=== PATIENT | female | born 1955 | race Caucasian/White ===

== ENCOUNTER → 2017-12-12 | Outpatient (CLI) | payer OTHER, MEDICARE ==
--- NOTE | 2017-12-13 10:38 | MM ---
Reason for exam: screening (asymptomatic). Last mammogram was performed 1 year and 1 month ago. History: Patient is postmenopausal and history of other cancer. Family history of breast cancer in paternal grandmother at age 60. Physical Findings: A clinical breast exam by your physician is recommended on an annual basis and results should be correlated with mammographic findings. MG 3D Screening Mammo W/Cad Bilateral CC and MLO view(s) were taken. Prior study comparison: October 30, 2016, bilateral MG 3d screening mammo w/cad. October 24, 2015, bilateral MG screening mammo w CAD. The breast tissue is heterogeneously dense. This may lower the sensitivity of mammography. No significant changes when compared with prior studies. ASSESSMENT: Benign, BI-RAD 2 RECOMMENDATION: Routine screening mammogram of both breasts in 1 year.
== END | disposition home or self-care (01) ==
LOC: RADMAMWWP 13:42
PROVIDERS: ATTEND Internal Medicine
DX: Z12.31 Encounter for screening mammogram for malignant neoplasm of breast (principal)
CPT/HCPCS: 77063; 77067

== ENCOUNTER 2019-07-09 13:56 | Day surgery (SDC) | payer MEDICARE, BC ==
[2019-07-01 14:49] VITALS: BMI 27.6
[~2019-07-09 13:56] MED LIST: LACTATED RINGERS 1,000 ML IV SCH; SODIUM CHLORIDE 0.9% 1,000 ML IV SCH
[2019-07-09] MEDS ORDERED: MIDAZOLAM 2 MG/2 ML VIAL ONE (16:20)
[2019-07-09] MEDS ORDERED: SUCCINYLCHOLINE CHLORIDE 100 MG/5 ML SYR IV ONE (16:20)
[2019-07-09] MEDS ORDERED: PROPOFOL 10 MG/ML 20 ML VIAL IV ONE (16:20)
[2019-07-09] MEDS ORDERED: PROTAMINE SULFATE 10 MG/ML 5 ML VIAL IV ONE (16:20)
[2019-07-09] MEDS ORDERED: fentaNYL (PF) 50 MCG/ML 2 ML AMP ONE (16:20)
[2019-07-09] MEDS ORDERED: FUROSEMIDE 10 MG/ML 2 ML VIAL ONE (16:20)
[2019-07-09] MEDS ORDERED: HEPARIN SODIUM,PORCINE 5,000 UNIT/ML 1 ML VIAL ONE (16:20)
[2019-07-09] MEDS ORDERED: LIDOCAINE 1% INJ 10MG/ML (20 ML MDV) ONE ×2 (16:20→16:56)
[2019-07-09] MEDS ORDERED: PHENYLEPHRINE-0.9% NACL SYG 1 MG/10 ML SYRINGE ONE (16:20)
[2019-07-09] MEDS ORDERED: HEPARIN SOD,PORK IN 0.45% NACL 25,000 UNIT in 0.45% NACL 1 250ML.BAG IV ONE (16:53)
[2019-07-09] MEDS ORDERED: LIDOCAINE 1% INJ 10MG/ML (20 ML MDV) SQ ONE (16:57)
[2019-07-09] MEDS ORDERED: HYDROcodone/APAP 5-325MG 1 EACH TAB PO PRN (18:03)
[2019-07-09] MEDS ORDERED: ACETAMINOPHEN TAB 325 MG TAB PO PRN (18:03)
[2019-07-09] MEDS ORDERED: HEPARIN SODIUM (1,000 UNIT/ML) 1,000 UNIT in SODIUM CHLORIDE 0.9% 1,000 ML IRRIGATION ONE (18:33)
[2019-07-09] MEDS ORDERED: IOPAMIDOL-370 100ML BTL INJ ONE (19:06)
[2019-07-09] MEDS ORDERED: LACTATED RINGERS 1,000 ML IV ONE (19:45)
--- NOTE | 2019-07-09 20:11 | P.PCN ---
Preoperative Diagnosis: Diagnosis Atrial fibrillation, symptomatic, refractory to therapy, paroxysmal Paroxysmal atrial flutter with RVR, symptomatic Result No left atrial appendage mass seen on intracardiac echo Prior to starting ablation patient had paroxysms of atrial fibrillation with RVR repetitively, but brief periods of sinus rhythm Successful pulmonary vein isolation of left-sided are veins veins using cryo- ablation with complete elimination/resolution of atrial fibrillation Following cryoablation of the left-sided pulmonary veins she had no further paroxysms of atrial fibrillation. The rest of the procedure Right superior pulmonary vein cryoablation was performed for about 85 seconds. Phrenic nerve paresis was noted and cryoablation was terminated Complete recovery of phrenic nerve function by the end of the procedure Complete entrance block in 3 veins veins confirmed. However right superior vein cryoablation was only 485 seconds Right inferior pulmonary vein was not ablated Phrenic nerve paresis, complete recovery Esophageal deflection YES , left-sided esophagus Procedure details Patient was brought to the EP lab in a fasting state. Written informed consent was obtained prior to the procedure. Procedure performed under general anesthesia After initial muscle relaxant use, muscle relaxants were not given thereafter in order to assess phrenic nerve during procedure. Patient prepped and draped as per protocol Full cryo-set up with standard preparation of the cryoablation tools done. Femoral Venous access obtained on the right and left groins Venous and arterial Sheaths placed. Diagnostic catheters for the high right atrium, phrenic nerve stimulation and pacing, His bundle, RV and coronary sinus placed Intracardiac echo catheter placed. Long sheath placed in the right atrium Left and right transseptal catheterization performed under intracardiac echo guidance. Intravenous heparin with aCT above 300 Later, catheter positioning and balloon positioning in the left atrium, under intracardiac echo guidance Diagnostic EP study with Coronary sinus pacing and recording Baseline measurements During sinus rhythm heart rates in the 50s, QRS 88 ms QT 335 ms AH FT4 milliseconds and HV 50 ms Atrial pacing performed from the high right atrium and the coronary sinus RV pacing via Wenckebach block for 80 ms AV node Wenckebach block 390 ms Slow pathway at 410 ms Sinus node recovery times at a pacing cycle length of 500 ms was 1211 ms Transseptal catheterization performed RA pressure 18/3 LA pressure 27/9 Transseptal catheterization performed with standard sheath. The cryoablation sheath was then placed with an over the wire exchange without any acute complications. All 4 pulmonary veins were isolated in the following sequence: Left superior followed by left inferior followed by right superior followed by right inferior The cryo-ablation balloon was placed at the os of each vein 1.5 mL of IV dye was injected to confirm an occluded vein Goal during cryoablation was to achieve complete occlusion of the pulmonary vein, achieve -30 degrees C at 30 seconds and achieve -40 degrees C at 60 seconds and a time to effect of less than 60-90 seconds, . If not the balloon was repositioned to obtain this result After completion of Cryoblation with durations from 180-240 seconds, entrance block was confirmed with the Attain circular catheter in a roving fashion around the antrum of the pulmonary veins Phrenic nerve pacing was performed from the SVC, right innominate vein area and diaphragm voltage was monitored. Diaphragmatic contractions were also monitored manually for strength of contraction. Parameter goals for each cryo freeze Complete occlusion of the appropriate vein -30 degrees C by 30 seconds -40 degrees C by 60 seconds Minimum between minus 40-55 degrees C Thaw time greater than 10 seconds Balloon visualized by intracardiac echo The esophagus was intubated. Esophageal Temperature monitoring with a CIRCA catheter formed. Esophageal deflection for hypothermia of the esophagus below 30 degrees C Left superior pulmonary vein Complete isolation, entrance block Significant reduction in PAF episodes Left inferior pulmonary vein Complete isolation, entrance block Complete elimination of PAF episodes Right superior pulmonary vein, during phrenic nerve pacing Complete isolation, entrance block but cryoablation had to be prematurely terminated on account of fentanyl paresis in 85 seconds Complete recovery of phrenic nerve function at the end of the procedure Right inferior pulmonary vein, ablation not attempted on account of phrenic nerve paresis right-sided At the end of the procedure the Achieve catheter was once again used to check for entrance block Phrenic nerve stimulation was performed to confirm diaphragmatic stimulation the end of the procedure Cine fluoroscopy was performed at the very end of the procedure to confirm movement of both diaphragms with inspiration and expiration 3-D electro-anatomic mapping of the right atrium was performed RF ablation of atrial flutter was performed. Complete RF line of block was made. This line was interrogated and bidirectional block was proven Successful atrial flutter ablation At the end of the procedure the patient was extubated Heparin was reversed Venous sheaths were removed and hemostasis assured Procedures performed ([facility]I - CRYO Ablation of left-sided veins and RF ablation of atrial flutter) Diagnostic EP study CS pacing and recording Left and right transseptal catheterization 3D mapping) Intracardiac echocardiography Pulmonary vein isolation with transseptal and comprehensive EPS, [id number] typical atrial flutter ablation [id number] Plan If she has paroxysms of atrial fibrillation the future I will bring her back for RF ablation of the right-sided veins while tagging the phrenic nerve
[2019-07-09] MEDS ORDERED: RIVAROXABAN 20 MG TAB PO SCH ×2 (20:15→22:30)
[2019-07-09] MEDS ORDERED: ONDANSETRON 4 MG/2 ML VIAL IVP ONE (20:45)
[2019-07-09] MEDS ORDERED: ACETAMINOPHEN IV (For NPO) 1,000 MG in EMPTY BAG 1 BAG IVPB ONE (21:00)
[2019-07-09] MEDS: METOPROLOL TARTRATE 12.5 MG TAB PO SCH (22:40)
[2019-07-09] MEDS: FLECAINIDE 50 MG TAB PO SCH (22:41)
[2019-07-10] MEDS ORDERED: LEVOTHYROXINE 50 MCG TAB PO SCH (06:30)
--- NOTE | 2019-07-10 08:06 | P.DS ---
Providers Attending physician: Trenton Kitchen Primary care physician: Tejinder Garsia [facility]: Patient is doing well after A. fib ablation and atrial flutter ablation. She denies any dizziness no shortness of breath no cough phlegm no palpitations She maintains sinus rhythm On examination she is afebrile 97.9F pulse rate in the 70s blood pressure 114/57 mmHg Breath sounds are clear no rhonchi no crackles Heart sounds S1 and S2 are normal no murmurs or gallops no rub Abdomen soft nontender Extremity is warm no edema No JVD Impression Paroxysmal atrial fibrillation with very frequent episodes and symptomatic Typical atrial flutter documented in the office Status post atrial flutter ablation Status post cryoablation of the left-sided pulmonary veins with complete elimination of atrial fibrillation episodes during the procedure During the right superior pulmonary vein cryoablation, transient phrenic nerve paresis noted with an 85 seconds of application of cryo lesion necessitating termination. Complete recovery of phrenic nerve function by the end of the procedure. H owever the right-sided veins were not ablated thereafter Patient remained in sinus rhythm and had no further paroxysms of atrial fibrillation at all left sided esophagus Suggest Continue current medications including flecainide anticoagulation and all other medications Ablated in the hallways Remove Manriquez catheter Remove sutures in both groins If she is stable from cardio vascular standpoint and has no groin issues she may go home today and follow-up with me within 1-2 weeks If in the future she continues to have paroxysms of atrial fibrillation then RF ablation of the right-sided veins be performed at an antral level with phrenic nerve tagging Plan - Discharge Summary Discharge Rx Participant: Yes New Discharge Prescriptions: Continue Cholecalciferol [Vitamin D3 (25 Mcg = 1000 Iu)] 2,000 unit PO DAILY Metoprolol Tartrate 12.5 mg PO BID Flecainide [Tambocor] 50 mg PO BID Magnesium 200 mg PO DAILY Calcium Carbonate [Calcium] 1,000 mg PO DAILY Rivaroxaban [Xarelto] 20 mg PO W/SUPPER Levothyroxine Sodium [Synthroid] 75 mcg PO DAILY Discharge Medication List Calcium Carbonate [Calcium] 1,000 mg PO DAILY 06/09/15 [History] Cholecalciferol [Vitamin D3 (25 Mcg = 1000 Iu)] 2,000 unit PO DAILY 06/09/15 [History] Flecainide [Tambocor] 50 mg PO BID 06/09/15 [History] Levothyroxine Sodium [Synthroid] 75 mcg PO DAILY 06/09/15 [History] Magnesium 200 mg PO DAILY 06/09/15 [History] Metoprolol Tartrate 12.5 mg PO BID 06/09/15 [History] Rivaroxaban [Xarelto] 20 mg PO W/SUPPER 06/09/15 [History] Follow up Appointment(s)/Referral(s): Trenton Kitchen MD [STAFF PHYSICIAN] - 1 Week (follow up with Dr. Kitchen/Angelina Adkins/Peggy Hogue in 1-2 weeks) Activity/Diet/Wound Care/Special Instructions: Post EP study - Ablation instructions 1. Keep access sites dry for 2 days. 2. No heavy lifting or straining for 2 days. 3. Avoid bending the hips repeatedly for 2 days. 4. You may go up and down stairs slowly Call if the following is noted 1. Bleeding, increasing swelling or pain at the access sites. 2. Increasing chest discomfort, especially upon taking a deep breath. 3. Increasing shortness of breath, at rest or with exertion. 4. Undue cough / phlegm 5. Difficulty or pain while swallowing. 6. Pain or change in color in the extremities. 7. Fever, chills, rigors. 8. Increasing headache or neurologic symptoms. 9. Dizziness, fainting, palpitations Continue all medications including xarelto
[2019-07-10 08:17] VITALS: RESP 17
[2019-07-10] MEDS ORDERED: MAGNESIUM OXIDE 400 MG TAB PO SCH (09:00)
[2019-07-10] MEDS: FLECAINIDE 50 MG TAB PO SCH (09:52)
[2019-07-10] MEDS: METOPROLOL TARTRATE 12.5 MG TAB PO SCH (09:52)
[2019-07-10 12:06] VITALS: BP 117/77; PULSE 67; TEMP 98.1
== END 2019-07-10 17:30 ==
LOC: CATHEP 13:56 → 1SOBS 19:40 → CATHEP 07-10 17:30
PROVIDERS: ATTEND Internal Medicine Clinical Cardiac Electrophysiology
DX: I48.0 Paroxysmal atrial fibrillation (principal); I48.3 Typical atrial flutter; I49.5 Sick sinus syndrome; E03.9 Hypothyroidism, unspecified; D68.51 Activated protein C resistance; Z79.890 Hormone replacement therapy; Z79.899 Other long term (current) drug therapy; Z79.01 Long term (current) use of anticoagulants; Z91.040 Latex allergy status
CPT/HCPCS: 85347; 93662; 93613; 93656; 93657; C1769 ×4; C1894 ×2; C1759; C1893; C1733; C1730; C1732; J2250; J2720; J1644 ×3; J1940; J2405; J2001; J3010; J0131; J2370; J0330; J2704; Q9967

== ENCOUNTER → 2020-05-18 | Outpatient (CLI) | payer MEDICARE, BC ==
--- NOTE | 2020-05-20 08:55 | MM ---
Reason for exam: screening (asymptomatic). Last mammogram was performed 1 year and 4 months ago. History: Patient is postmenopausal and has history of other cancer at age 50. Family history of breast cancer in paternal grandmother at age 60. Physical Findings: A clinical breast exam by your physician is recommended on an annual basis and results should be correlated with mammographic findings. MG 3D Screening Mammo W/Cad Bilateral CC and MLO view(s) were taken. Prior study comparison: January 26, 2019, bilateral MG 3d screening mammo w/cad. December 12, 2017, bilateral MG 3d screening mammo w/cad. The breast tissue is heterogeneously dense. This may lower the sensitivity of mammography. No significant changes when compared with prior studies. ASSESSMENT: Negative, BI-RAD 1 RECOMMENDATION: Routine screening mammogram of both breasts in 1 year.
== END | disposition home or self-care (01) ==
LOC: RADMAMWWP 10:56
PROVIDERS: ATTEND Internal Medicine
DX: Z12.31 Encounter for screening mammogram for malignant neoplasm of breast (principal)
CPT/HCPCS: 77063; 77067

== ENCOUNTER → 2021-05-19 | Outpatient (CLI) | payer MEDICARE, BC ==
--- NOTE | 2021-05-22 11:37 | MM ---
Reason for exam: screening (asymptomatic). Last mammogram was performed 1 year ago. History: Patient is postmenopausal and has history of other cancer at age 50. Family history of breast cancer in paternal grandmother at age 60. Took hormonal contraceptives for 8 years. Physical Findings: A clinical breast exam by your physician is recommended on an annual basis and results should be correlated with mammographic findings. MG 3D Screening Mammo W/Cad Bilateral CC and MLO view(s) were taken. Prior study comparison: May 18, 2020, bilateral MG 3d screening mammo w/cad. January 26, 2019, bilateral MG 3d screening mammo w/cad. There are scattered fibroglandular densities. Limited exam, poor patient mobility due to stroke. No significant changes when compared with prior studies. ASSESSMENT: Negative, BI-RAD 1 RECOMMENDATION: Routine screening mammogram of both breasts in 1 year.
== END | disposition home or self-care (01) ==
LOC: RADMAMWWP 11:15
PROVIDERS: ATTEND Internal Medicine
DX: Z12.31 Encounter for screening mammogram for malignant neoplasm of breast (principal); Z78.0 Asymptomatic menopausal state; Z85.9 Personal history of malignant neoplasm, unspecified; Z80.3 Family history of malignant neoplasm of breast; Z79.3 Long term (current) use of hormonal contraceptives
CPT/HCPCS: 77063; 77067

== ENCOUNTER → 2022-05-30 | Outpatient (CLI) | payer MEDICARE, BC ==
--- NOTE | 2022-05-31 17:36 | MM ---
Reason for Exam: Screening (asymptomatic). Last screening mammogram was performed 12 month(s) ago. Patient History: Menarche at age 9. First Full-Term at age 21. Postmenopausal. Other cancer, age 50. Patient used Hormonal Contraceptives for 8 years. Paternal grandmother had breast cancer, age 60. Risk Values: Katiana 5 year model risk: 1.7%. NCI Lifetime model risk: 5.5%. Prior Study Comparison: 01/26/2019 Bilateral Screening Mammogram, [facility]. 05/18/2020 Bilateral Screening Mammogram, [facility]. 05/19/2021 Bilateral Screening Mammogram, [facility]. Tissue Density: The breast tissue is heterogeneously dense. This may lower the sensitivity of mammography. Findings: Analyzed By CAD. There is no suspicious group of microcalcifications or new suspicious mass in either breast. Overall Assessment: Negative, BI-RAD 1 Management: Screening Mammogram of both breasts in 1 year. 1. Patient should continue monthly self breast exams. 2. A clinical breast exam by your physician is recommended on an annual basis. 3. This exam should not preclude additional follow-up of suspicious palpable abnormalities. Electronically signed and approved by: Napoleon Mccartney M.D. Radiologist
== END | disposition home or self-care (01) ==
LOC: RADMAMWWP 10:08
PROVIDERS: ATTEND Internal Medicine
DX: Z12.31 Encounter for screening mammogram for malignant neoplasm of breast (principal); Z78.0 Asymptomatic menopausal state; Z80.3 Family history of malignant neoplasm of breast
CPT/HCPCS: 77063; 77067

== ENCOUNTER → 2023-06-26 | Outpatient (CLI) | payer MEDICARE, BC ==
--- NOTE | 2023-06-27 08:18 | MM ---
Reason for Exam: Screening (asymptomatic). Last mammogram was performed 1 year(s) and 1 month(s) ago. Patient History: Menarche at age 9. First Full-Term at age 21. Postmenopausal. Other cancer, age 50. Patient used Hormonal Contraceptives for 8 years. Paternal grandmother had breast cancer, age 60. Risk Values: Katiana 5 year model risk: 1.7%. NCI Lifetime model risk: 5.2%. Prior Study Comparison: 05/18/2020 Bilateral Screening Mammogram, [facility]. 05/19/2021 Bilateral Screening Mammogram, [facility]. 05/30/2022 Bilateral MG 3D screening mammo w/cad, [facility]. Tissue Density: The breast tissue is heterogeneously dense. This may lower the sensitivity of mammography. Findings: Analyzed By CAD. There is no suspicious group of microcalcifications or new suspicious mass in either breast. Overall Assessment: Negative, BI-RAD 1 Management: Screening Mammogram of both breasts in 1 year. A clinical breast exam by your physician is recommended on an annual basis and results should be correlated with mammographic findings. Note on Katiana scores and lifetime risk: 1. A Katiana score greater than 3% is considered moderate risk. If this is the case, consider specialist referral to assess eligibility for a risk reducing agent. If overall lifetime risk for the development of breast cancer is 20% or higher, the patient may qualify for future screening with alternating mammogram and breast MRI. Electronically signed and approved by: Salbador Rivera D.O.
== END | disposition home or self-care (01) ==
LOC: RADMAMWWP 13:11
PROVIDERS: ATTEND Internal Medicine
DX: Z12.31 Encounter for screening mammogram for malignant neoplasm of breast (principal); Z78.0 Asymptomatic menopausal state; Z80.3 Family history of malignant neoplasm of breast
CPT/HCPCS: 77063; 77067

== ENCOUNTER → 2024-06-30 | Outpatient (CLI) | payer MEDICARE, BC ==
--- NOTE | 2024-07-08 07:56 | MM ---
Reason for Exam: Screening (asymptomatic). Last screening mammogram was performed 12 month(s) ago. Patient History: Menarche at age 9. First Full-Term at age 21. Postmenopausal. Other cancer, age 50. Patient used Hormonal Contraceptives for 8 years. Paternal grandmother had breast cancer, age 60. Risk Values: Katiana 5 year model risk: 1.7%. NCI Lifetime model risk: 5.0%. Prior Study Comparison: 05/19/2021 Bilateral Screening Mammogram, [facility]. 05/30/2022 Bilateral MG 3D screening mammo w/cad, [facility]. 06/26/2023 Bilateral MG 3D screening mammo w/cad, [facility]. Tissue Density: There are scattered areas of fibroglandular density. Findings: Analyzed By CAD. Right breast: There is no suspicious group of microcalcifications or new suspicious mass. Left breast: There is no suspicious group of microcalcifications or new suspicious mass. Overall Assessment: Negative, BI-RAD 1 Management: Screening Mammogram of both breasts in [address] [facility] will attempt to contact patient to return for supplemental views and ultrasound if indicated. Patient should continue monthly self-breast exams. A clinical breast exam by your physician is recommended on an annual basis. This exam should not preclude additional follow-up of suspicious palpable abnormalities. Note on Katiana scores and lifetime risk: 1. A Katiana score greater than 3% is considered moderate risk. If this is the case, consider specialist referral to assess eligibility for a risk reducing agent. 2. If overall lifetime risk for the development of breast cancer is 20% or higher, the patient may qualify for future screening with alternating mammogram and breast MRI. Electronically signed and approved by: Farhad Munoz DO
== END | disposition home or self-care (01) ==
LOC: RADMAMWWP 10:40
PROVIDERS: ATTEND Internal Medicine
DX: Z12.31 Encounter for screening mammogram for malignant neoplasm of breast
CPT/HCPCS: 77063; 77067